=== PATIENT | female | born 1965 | race Caucasian/White ===

== ENCOUNTER → 2016-07-23 | Outpatient (CLI) | payer OTHER ==
[~2016-07-23] VITALS: Ht 147.3 cm; Wt 83.0 kg
[~2016-07-23] MED LIST: HYGROTON25 MG PO; POTASSIUM CHLO10 ME3 PO; PRAVACHOL20 MG PO; SPIRONOLACTONE25 MG PO; ZOLOFT50 MG PO
== END | disposition home or self-care (01) ==
LOC: AMB 09:13
PROC: 0DJD8ZZ Inspection of Lower Intestinal Tract, Via Natural or Artificial Opening Endoscopic (ICD-10-PCS; principal; 2016-07-23)
DX: Z12.11 Encounter for screening for malignant neoplasm of colon (principal); K57.90 Diverticulosis of intestine, part unspecified, without perforation or abscess without bleeding; K64.8 Other hemorrhoids; I10 Essential (primary) hypertension